=== PATIENT | male | born 1980 | race Caucasian/White ===

== ENCOUNTER 2023-03-24 06:47 | Observation (INO) ==
--- NOTE | 2023-03-10 10:47 | PAT Medication Instructions ---
Medication Instructions Date of Service March 10, 2023 Home Medications gabapentin 300 mg capsule 300 mg PO TID Take morning of surgery With a small sip of water, OTHERWISE NOTHING TO EAT OR DRINK AFTER MIDNIGHT: gabapentin 300 mg capsule 300 mg PO TID Take evening before surgery gabapentin 300 mg capsule 300 mg PO TID Other Notes If you have any questions please call us at [phone] or [phone] or [phone] or [phone]
--- NOTE | 2023-03-15 09:58 | Anesthesiology Consultation ---
Date of Service March 15, 2023 Assessment & Plan (1) Encounter for pre-operative examination: - Infectious disease screening: Per assessment on 03/15/23: No known infectious disease contacts. Patient was Covid positive 02/27/23 (home test)- fatigue > resolved after a few days. No current infectious disease symptoms. Pt can proceed as scheduled without additional preop Covid testing or additional Covid contact precautions per protocol. - Outpatient joint assessment: Pt currently scheduled for inpatient pathway. If surgeon requests review for outpatient joint pathway, patient is an acceptable candidate for outpatient joint program from anesthesia standpoint pending surgeon's office assessment that patient is motivated, has good support and completes [facility] Day Joint Program preop requirements. - Patient acceptable risk for surgery pending surgeon-ordered PCP preop evaluation (SIMEON Alaniz, appt 03/19). Chart Review Chart Review: Patient seen in Pre Admission Testing Teaching & Discussion Pre-Anesthesia Teaching/Discussion Notes: Instructed NPO after midnight before surgery,except medications with 15 cc of water. Medication instructions provided according to the PAT guidelines. History Surgery Operation Date: 03/24/23 08:50 Proposed Procedures p Left Total Hip Arthroplasty - Partha Mckeon MD Height/Weight Height: 6 ft Weight: 138.4 kg Allergies Allergy/AdvReac Type Severity Reaction Status Date / Time No Known Allergies Allergy Verified 03/08/23 08:01 Medications Home Medications Medication Instructions Recorded Confirmed Last Taken gabapentin 300 mg capsule 300 mg PO TID 08/04/21 03/08/23 08/06/21 Past Medical History Medical History Arthritis History of ADHD History of COVID-19 03/2021- mild symptoms 02/27/23 (home test)- fatigue, resolved Inguinal hernia Lumbar radiculopathy Exercise / Class Metabolic Activity II 4-5 Yardwork/Stairs/Walk up hill Past Family History Family History Father Family hx of colon cancer Other No family history of adverse response to anesthesia Past Surgical History Surgical History History of appendectomy History of colonoscopy History of tonsillectomy and adenoidectomy [place] teeth removed Past Anesthesia History No Hx of Anesthesia Complications and No Family Hx of Anesthesia Complications History of PONV No Hx of PONV and No Hx of Motion Sickness Social History Smoking Status: Light tobacco smoker tobacco type: cigarettes and cigars Do You Dip or Chew Tobacco: No Smoking End Date: Quit cigarette 3-4 years ago, occasional cigar Hx Alcohol Use: Yes Alcohol type: beer alcohol intake frequency: holidays/special occasions only Hx Substance Use: No substance use type: does not use Review of Systems Patient denies chest pain, shortness of breath, dyspnea on exertion, fever, chills, cough, wheezing, palpitations. Physical Exam Vital Signs VITALS BP 156/69 P 57 TEMP 98.7 SP02 95%RA RESP 16 PHYSICAL Full cervical extension range of motion. Full TMJ range of motion. TMD 4 finger breaths Mallampati Score 2 Dentition: missing molars, + implant (possible) Lungs: clear throughout to auscultation Cardiac: regular rate and rhythm, no murmurs noted Spine: normal Carotid arteries: negative bruit Extremities: no LE edema Short neck Lab Results Anesthesia Preop Results Results Anesthesia Widget: WBC 7.20 K/ul (4.8-10.8) 03/15/23 Hgb 15.4 g/dl (14.0-18.0) 03/15/23 Hct 43.5 % (42.0-52.0) 03/15/23 Plt 242 K/uL (130-400) 03/15/23 Na 140 mmol/L (136-145) 03/15/23 K 3.9 mmol/L (3.5-5.1) 03/15/23 Cl 107 mmol/L (98-107) 03/15/23 CO2 28 mmol/L (21-32) 03/15/23 BUN 22 mg/dl (6-23) 03/15/23 Creat 0.99 mg/dl (0.6-1.4) 03/15/23 Glucose Level 96 mg/dl (70-99(Fasting)) 03/15/23 PT 10.9 Seconds (9.0-12.0) 03/15/23 PTT 26.7 Seconds (21.0-31.0) 03/15/23 INR 1.0 (0.9-1.1) 03/15/23 Urine Color Dark Yellow 03/15/23 Urine Appearance Clear (Clear) 03/15/23 Urine pH 6.0 (4.5-7.5) 03/15/23 Urine Specific [place] 1.042 (1.000-1.030) H 03/15/23 Urine Protein 1+ (Negative) H 03/15/23 Urine Glucose (UA) Negative (Negative) 03/15/23 Urine Ketones Trace (Negative) H 03/15/23 Urine Blood Negative (Negative) 03/15/23 Urine Nitrite Negative (Negative) 03/15/23 Urine Bilirubin 1+ (Negative) H 03/15/23 Urine Urobilinogen Negative (Negative) 03/15/23 Urine Leukocyte Esterase Negative (Negative) 03/15/23 Urine WBC (Auto) 1-5 /hpf (0-5) 03/15/23 Urine RBC (Auto) 0-4 /hpf (0-4) 03/15/23 Urine Hyaline Casts (Auto) 0 /lpf (0-5) 03/15/23 Urine Epithelial Cells (Auto) 10-20 /lpf (0-5) H 03/15/23 Urine Bacteria (Auto) Negative (Negative) 03/15/23 Blood Type A Positive 03/15/23 Antibody Screen NEGATIVE 03/15/23 Testing Electrocardiogram Date: 03/15/23 SB with sinus arrhythmia at 49bpm. iRBBB. No significant change compared to 11/04/2015. Chest X-Ray Date: 03/15/23 Findings: + NAD
--- NOTE | 2023-03-24 06:31 | History & Physical Bridge Note ---
Date of Service March 24, 2023 History & Physical Bridge Note I have examined the patient, reviewed the History & Physical and in the interval since the performance of the History & Physical I have noted the following changes of clinical significance:consent and site verified. no changes noted
[~2023-03-24 06:47] MED LIST: LR 500ML BOLUS, THEN 15ML/HR IV SCH; LR 60ML/HR IV SCH; TRANEXAMIC ACID 1,000 MG **IV Pre-op IV SCH
[2023-03-24] MEDS ORDERED: BUPIVACAINE 0.5 % 5 MG/1 ML PF 10ML VIAL ONE (07:07)
[2023-03-24] MEDS ORDERED: fentaNYL citrate PF 100 MCG/2 ML VIAL ONE (07:16)
[2023-03-24] MEDS ORDERED: MIDAZOLAM HCL 1 MG/ML 2ML VIAL ONE ×2 (07:16→10:14)
[2023-03-24] MEDS ORDERED: PROPOFOL IV EMULSION 10 MG/ML 20 ML VIAL IV ONE ×6 (07:16→10:52)
[2023-03-24] MEDS ORDERED: ORTHO JOINT ANESTHETIC ONE (08:40)
[2023-03-24] MEDS ORDERED: PROMETHAZINE HCL 12.5 MG in SODIUM CHLORIDE 0.9% 50 ML IV PRN (08:55)
[2023-03-24] MEDS ORDERED: FLUMAZENIL 0.1 MG/1 ML 10 ML VIAL IV PRN (08:55)
[2023-03-24] MEDS ORDERED: ePHEDrine sulfate 50 MG/ML AMP IV PRN (08:55)
[2023-03-24] MEDS ORDERED: HYDROmorphone INJ 1 MG/ML SYRINGE IV PRN (08:55)
[2023-03-24] MEDS ORDERED: fentaNYL citrate PF 100 MCG/2 ML VIAL IV PRN (08:55)
[2023-03-24] MEDS ORDERED: NALOXONE HCL 0.4 MG/1 ML VIAL/CARP IV PRN ×2 (08:55→13:20)
[2023-03-24] MEDS ORDERED: ONDANSETRON INJ 2 MG/ML 2 ML VIAL IV PRN ×2 (08:55→13:20)
[2023-03-24] MEDS ORDERED: ATROPINE SULFATE 0.1 MG/ML 10ML SYR IV PRN (08:55)
[2023-03-24] MEDS ORDERED: GLYCOPYRROLATE 0.2 MG/ML VIAL ONE (09:16)
[2023-03-24] MEDS ORDERED: ePHEDrine sulfate 50 MG/5 ML SYR ONE (09:16)
[2023-03-24] MEDS ORDERED: TRANEXAMIC ACID / 0.7% NACL 1000MG/100ML BAG IV ONE (09:24)
[2023-03-24] MEDS ORDERED: ONDANSETRON INJ 2 MG/ML 2 ML VIAL ONE (09:47)
[2023-03-24] MEDS ORDERED: PHENYLEPHRINE HCL 10 MG/ML VIAL ONE (09:47)
[2023-03-24] MEDS ORDERED: VANCOMYCIN HCL 1000MG/20ML VIAL ONE (10:08)
[2023-03-24] MEDS ORDERED: TRANEXAMIC ACID 100 MG/ML 10 ML VIAL IV ONE (10:39)
[2023-03-24] MEDS: ROPIVACAINE 0.5% HCL/PF 150 MG, BUPIVACAINE 0.75% MPF 20 ML, EPINEPHrine 0.15 MG, Ketor... INFIL SCH ×2 (10:40→10:52)
--- NOTE | 2023-03-24 11:03 | Post Operative Brief Note ---
Immediate Post Op Note v1 Date of Surgery March 24, 2023 Pre & Post Diagnosis Operation Date: 03/24/23 08:50 Pre-Op Diagnosis: Left Hip Degenerative Joint Disease Post-Op Diagnosis: Left Hip Degenerative Joint Disease I identified the patient and participated in the time-out.: Yes Procedure Operation Date: 03/24/23 08:50 Actual Procedures p Left Total Hip Arthroplasty--Uncemented(Left) - Partha Mckeon MD Surgeon Partha Mckeon MD Supercharge Repair [facility] Estimated Blood Loss 200 Findings Consistent with Post-Op Diagnosis Severe osteoarthritis marked osteophyte formation Fluids See anesthesia report Complications None
--- NOTE | 2023-03-24 11:07 | Operative Report ---
Post Operative Report Procedure Date: March 24, 2023 Pre & Post Diagnosis: [Severe osteoarthritis left hip preop diagnosis Postop diagnosis severe osteoarthritis left hip] Time Out: I identified the patient and participated in the time-out. Procedure: [Noncemented left total replacement] Surgeon: Aydin Community Support Specialist: [Chey] Estimated Blood Loss: [200 cc] Findings: Severe disease with marked eburnation and marked osteophyte formation around the femur and the acetabulum [] Specimens: [Bone pathology] Description of Procedure: [After the patient was anesthetized with spinal he was appropriately positioned after marking his malleolar I and his patella on the opposite knee and placed in the right lateral decubitus position the left leg was draped free. He is a large man. Everything was padded appropriately. Once it was prepped and draped use routine fashion antibiotics from his been given the consent verified site verified the surgery was started. A appropriate sized incision was made over his posterior aspect of his left hip. Full-thickness flaps raised IT band and gluteus jairo fascia split longitudinally retractors placed care taken to protect the sciatic nerve which was palpated. There was exuberant subcutaneous tissue throughout and deep fat throughout. This was appropriately retracted and short external rotators identified some bleeding areas preemptively coagulated. Short external rotators were then released the capsule exposed. The capsule was then teed and preserved and the hip dislocated there was incredible deformity to the femoral head and the femoral neck. Femoral head was then resected using a template. The anterior capsule was then slightly incised with the thermal device of the retractor could be placed and then appropriate acetabular exposure obtained with 3 retractors care taken to protect the sciatic nerve. There was used osteophytes off the posterior inferior aspect of the acetabulum. Serial reaming was carried out to a size 55 and a 56 cup impacted into position and was an acetabular shell sector cup was then secured with a 6.5x30 screw with excellent purchase. Trial liner was then seated. It was a neutral liner. The femur was then flexed internally rotated the proximal femur. With a safe deposit box rental clerk canal finder lateralizing rest and serial broaching up to a size 7. Trial reduction was then carried out leg lengths were noted to be relatively closed with 1.5 head but 5 had made it better. The hip was then was remarkably stable in all planes. Trial implants were then removed from the femur the area irrigated with Betadine the trial liner removed the area irrigated with Pulsavac Betadine whole limb interceded. The permanent liner seated. Permanent head and stem seated. The hip was reduced and was stable in all planes the leg lengths were excellent. It was a size 7 standard Tri-Lock at 36+5 ceramic head. Once this was irrigated with Betadine and Pulsavac for final time deep vancomycin powder 1 g was mixed throughout the entire wound from the joint all the way out to the surface was split in the segments. The capsule was closed with #2 Vicryl and the short external rotators with #2 Vicryl deep fat with #2 Vicryl subcutaneous deep fat with #2 Vicryl to superficial deep fat with 2-0 Vicryl and the skin with kimberly. 0 Prolene was used for retention sutures. Appropriate dressing applied the patient transferred recovery in satisfactory addition he tolerated the procedure well. Patient will have x-rays checked in recovery room. If they look good we will get him on his feet CALEB. Blood loss was 200 cc or less crystalloid per anesthesia pathology pending on bone summary of implants size 56 shell set acetabular shell sector cup DePuy 6.5x30 screw 36x56 neutral liner 7 standard Tri-Lock and 36+5 ceramic head. DVT prophylaxis per protocol..] Attestation: I attest to the content of the Intraoperative Record and any orders documented therein. Any exceptions are noted below.
--- NOTE | 2023-03-24 11:09 | Discharge Summary ---
Date of Service March 25, 2023 Admission HPI Per Admitting Provider Severe pain osteoarthritis left hip Principal Diagnosis Severe osteoarthritis left hip Discharge Data Allergies Allergy/AdvReac Type Severity Reaction Status Date / Time No Known Allergies Allergy Verified 03/24/23 07:12 Vaccinations None Consultations None Procedures Performed Operation Date: 03/24/23 08:50 Actual Procedures p Left Total Hip Arthroplasty--Uncemented(Left) - Partha Mckeon MD Ordered Studies None Hospital Course (1) History of left hip replacement: Continue care pathway Plan Continue care pathway Total Time Total Time Spent Total Time Spent (In Minutes): 5 minutes Discharge Plan Discharge Items Patient Disposition: Home - Home Health Services Reason For Visit: Left Hip Degenerative Joint Disease Discharge Diagnosis: Left hip s/p total hip replacement Condition on Discharge: Good Activity: Per Instructions section Lifting: Wait until after follow-up appointment Bathing: Keep incision dry Sexual Activity: Wait until after follow-up appointment Exercise/Sports: Wait until after follow-up appointment Driving/Machine Use: No driving until cleared by Dr. Mckeon Weightbearing: Full weightbearing Non-emergency contact: Surgeon Call non-emergency contact if: you have any medication questions, your pain is not controlled, your temperature is above 101, your wound has increased redness, your wound has increased drainage and your wound pain has increased Follow-up/Referrals: Adriana Adhikari [Primary Care Provider] - Diet: Regular Addtl Attending Provider Instructions: New Medicine: * You will likely be taking one or more of these medicines: 1. Percocet - Take, as directed, when you need it, every four to six hours to control your pain. 2. Iron Sulfate - Take 1x each day for the month after surgery to help you replace the blood lost during surgery. 3. Coumadin - Thins your blood to lessen the chance of forming a blood clot. The dose of this is different for each person and is based on your blood tests that are done twice a week. * The most common side effects of pain medicine and iron are nausea and constipation. If nausea or constipation is too much of a problem or if you have any questions about your new medicines or doses, call [facility] at . We will try to help you manage these issues. "VERY IMPORTANT TO READ AND REVIEW" Blood Clots and Blood Thinning Medicine: * You are given Coumadin during the immediate post-operative period to lessen the risk of blood clots forming in your legs and/or lungs. Coumadin is usually given for six weeks after surgery. * The prescription is for 2 mg tablets. At discharge, you should understand your dose and take it all at the same time every day, preferably after dinner. * You need to get your blood checked 1 - 2 times per week for six weeks, or as directed. * If your dose needs to change, we will call you. Do not take your medication on the day of the blood test until we call you. * If you don't hear from us after your blood draws, keep taking the same dose. Pain: * The immediate post-operative period after hip replacement surgery is often quite painful. * You are given a prescription for pain medicine. You should take it, as directed, when you need it, especially before physical therapy and before going to bed. Pain that interferes with sleep is very common and can last several months. * You will likely need pain medicine for the first two to four weeks. It will not stop all of the pain. The pain will lessen and as you feel better, you may change to milder pain medicine such as Tylenol. * The most common side effects of pain medicine are nausea and constipation, so don't take more than you need. Physical Therapy: * Follow the "Hip Precautions Instructions." * In some cases, the social services director at the hospital will arrange to have a therapist come to your house for the first couple of weeks to help you learn these skills. * You need to practice on your own or with the help of a family member as needed. * When you learn these skills, most of the therapy can be done on your own. Home Exercise: * You were shown a series of exercises in the hospital. Do these exercises three to four times each day including the exercises you were shown in physical therapy. Walking: * Get up and walk several times each day. For the first four weeks, try not to stand or walk for more than one hour at a time. If you do stand or walk for more than one hour, you will not hurt anything, but your leg will likely swell. * As you feel comfortable, you may change from the walker or crutches to a cane and then to independent walking. SELF CARE INSTRUCTIONS AFTER TOTAL HIP REPLACEMENT Until the incision and soft tissues around your hip have healed, there is a possibility that the hip prosthesis could dislocate. A. Observe the following precautions to prevent dislocation: 1. Don't bend your hip greater than 90 degrees. 2. Avoid crossing your legs or ankles while standing or lying. 3. Sit with your feet placed 6 inches apart. 4. When sitting, keep your knees below your hips. Sit on a firm surface, avoid deep, soft chairs and couches. Use an elevated toilet seat in the bathroom. 5. Don't bend over at the waist. Use a long handled shoehorn and a sock aid to help you put on your shoes and socks. A punch finisher can help you milk pickup truck driver objects that are too high or too low to reach. 6. Keep car riding to a minimum for at least one month after surgery. B. Your balance may be shaky for a while. Use crutches or a walker until directed by your doctor. C. Use hand rails when walking on stairs. D. Wear low heeled shoes with non-slip soles. E. Be sure that your floors are free of things that could trip you - throw rugs, electrical cords, small objects. Avoid wet and waxed floors, especially with crutches and canes. F. Try to walk several times a day with rest periods between. G. Continue with all the exercises taught to you in the hospital. Again, make walking a part of your daily routine. VERY IMPORTANT TO READ AND REVIEW A. Take Coumadin, or Lovenox (blood thinning medications) as directed by your doctor. If you are on Coumadin, have a pro-time (blood test) drawn according to your doctor's instructions. This will tell the doctor how well the Coumadin is thinning your blood. B. There are a few signs you need to watch for after you are home. If you notice any of the followin. Increased severe hip pain. Some pain is expected especially when you exercise. 2. Increased swelling in your leg or knee; pain or swelling of the calf muscle in either lower leg. 3. Any fluid drainage from the incision. 4. Shortness of breath or chest pain. TEDs/Elastic Stockings: * The white elastic stockings help limit swelling and prevent blood clots from forming in your legs. The more you wear them, the more they work. * Wear them for six weeks. Prevention of Infection: * Take antibiotics one hour before any dental cleaning, dental work, urological procedure, gastrointestinal procedure or any invasive surgery in order to prevent your new joint from getting infected. * You may get the antibiotics from the doctor performing the procedure or we will call in a prescription to the pharmacy of your choice. Call the office for a prescription at least 2 days prior to your paolo ointment. Things to Watch For: * Drainage from the incision site that occurs more than one week after your surgery. * Severely increased leg pain or swelling. * Increased redness at the incision site. * Fever above 101 degrees Fahrenheit. * Unusual chest pain or shortness of breath. * Unusual pain or burning with urination. Pending Studies at Discharge: Yes (Bone pathology) Stand-Alone Forms: My [facility], Smoking Cessation Medications and DC Order Prescriptions: No Action gabapentin 300 mg Capsule 300 mg PO TID Admission Data Admit Date/Time: 03/24/23 11:18 Attending Provider: Partha Mckeon Admit Provider: Partha Mckeon Primary Care Provider: Adriana Adhikari
--- NOTE | 2023-03-24 11:10 | Orthopedic Progress Note ---
Date of Service March 24, 2023 Assessment & Plan (1) History of left hip replacement: Plan: Continue care pathway Plan Continue care pathway Orthopedic Progress Note Tolerated left total replacement well denies chest pain shortness of breath fever chills nausea vomiting or headache. Vital signs are stable he is afebrile. Neurovascular check limited by spinal. X-ray pending. Continue care pathway. Discharge tomorrow if he does well. DVT prophylaxis per protocol.
--- NOTE | 2023-03-24 11:11 | Operative Report ---
Post Operative Report Pre & Post Diagnosis Operation Date: 03/24/23 08:50 Pre-Op Diagnosis: Left Hip Degenerative Joint Disease Post-Op Diagnosis: Left Hip Degenerative Joint Disease I identified the patient and participated in the time-out.: Yes Procedure Operation Date: 03/24/23 08:50 Actual Procedures p Left Total Hip Arthroplasty--Uncemented(Left) - Partha Mckeon MD Surgeon CITLALI Mckeon MD Sustainable Agriculture Faculty Chey MELÉNDEZ Estimated Blood Loss 200 Findings Consistent with Post-Op Diagnosis see operative report Specimens see operative report Drains none Complications none Disposition Accompanied Patient To Recovery: Yes Indications This 42 year old male presented the office with complaints of persisting left hip pain. He had tried conservative care measures including injection therapy, without improvement. He elected to proceed with surgical intervention after being educated about potential risks and outcomes. Preoperative imaging was obtained. Description of Procedure The patient was administered a spinal anesthetic and then taken to the operating room where he was given sedation. He was prepped and draped in the usual sterile fashion. Please see Dr. Mckeon's operative report for specifics of the procedure. I was present for the entire case from initial patient positioning through final wound closure. Assistance was provided in tissue retraction, hemostasis, trial implant placement, final implant placement, and final wound closure. The patient was taken to the recovery room in satisfactory condition. I attest to the content of the Intraoperative Record and any orders documented therein. Any exceptions are noted below.
--- NOTE | 2023-03-24 12:12 | Anesthesiology Progress Note ---
Date of Service March 24, 2023 Anesthesia Post Procedure Vital Signs Vital Signs: Temp Pulse Resp BP Pulse Ox O2 Del Method 03/24/23 12:00 36.4 C L 67 18 114/66 97 Room Air 03/24/23 11:45 58 L 20 113/61 93 Room Air 03/24/23 11:35 76 20 128/88 97 Room Air 03/24/23 11:25 64 16 107/64 94 Room Air 03/24/23 11:15 67 19 105/63 95 Room Air 03/24/23 11:06 36.3 C L 91 H 21 117/68 94 Room Air 03/24/23 07:13 36.6 C 62 22 133/76 95 Room Air Pain Intensity Left Hip: Pain Intensity: 0 Right Shoulder: Pain Intensity: 7 Transfer of Care Handoff Completed per policy Notes Mental Status: alert / awake / arousable Patient Amnestic to Procedure: Yes Nausea / Vomiting: adequately controlled Pain: adequately controlled Airway Patency, RR, SpO2: stable & adequate BP & HR: stable & adequate Hydration State: stable & adequate Neuraxial Anesthesia: was administered and sensory block is resolving Anesthetic Complications: no major complications apparent
[2023-03-24] MEDS ORDERED: bisacodyL 10 MG SUPP PR PRN (13:20)
[2023-03-24] MEDS ORDERED: ALUMINUM/MAGNESIUM SUSP 30 ML UDC PO PRN (13:20)
[2023-03-24] MEDS ORDERED: TAMSULOSIN HCL 0.4 MG CAP PO PRN (13:20)
[2023-03-24] MEDS ORDERED: diphenhydrAMINE 50 MG/ML VIAL IV PRN (13:20)
[2023-03-24] MEDS ORDERED: METOCLOPRAMIDE HCL INJ 5 MG/ML 2 ML VIAL IV PRN (13:20)
[2023-03-24] MEDS ORDERED: MAGNESIUM HYDROXIDE SUSP 30 ML UDC PO PRN (13:20)
[2023-03-24] MEDS ORDERED: SODIUM CHLORIDE 0.9% 1,000 ML IV SCH (13:30)
--- NOTE | 2023-03-24 13:31 | XRay Report ---
XR pelvis 1-2V routine CLINICAL HISTORY: Status post left hip arthroplasty. COMPARISON: Pelvis and left hip radiographs September 28, 2022. FINDINGS: Alignment of the total left hip arthroplasty is anatomic. There is no periprosthetic fract ure or unexpected radiopaque foreign body. There is an acetabular screw and skin kimberly. Right hip o steoarthritis is incidentally noted. IMPRESSION: Expected findings following total left hip arthroplasty. ACT 112: Negative or not required by law. Electronically signed by: Demond Gómez M.D. 03/24/2023 1:30 PM
[2023-03-24] MEDS ORDERED: ORTHO WARFARIN NOMOGRAM SCH (14:00)
[2023-03-24] MEDS: ACETAMINOPHEN 500 MG TAB PO SCH ×2 (14:07→19:47)
[2023-03-24] MEDS: oxyCODONE HCL IR 5 MG TAB (IMMEDIATE RELEASE) PO PRN ×2 (14:07→23:22)
[2023-03-24] MEDS: KETOROLAC 30 MG/ML VIAL IV SCH ×2 (14:07→19:43)
--- NOTE | 2023-03-24 14:50 | Orthopedic Progress Note ---
Date of Service March 24, 2023 Assessment & Plan (1) History of left hip replacement: Plan: Continue care pathway Plan Continue care pathway Admission and Anticipated Discharge Date Admission Date: March 24, 2023 Orthopedic Progress Note Afternoon rounds check at this point in time he is doing well. Denies chest pain shortness of breath fever chills nausea vomiting or headache. Vital signs are stable he is afebrile. Neurovascular check femoral sciatic nerve is intact. Wound dressing clean dry and intact hip located. Supple motion. Postop x-rays look excellent. Assessment doing well we will saline lock his IV and get up on his feet soon after. Tolerated left total replacement well denies chest pain shortness of breath fever chills nausea vomiting or headache. Vital signs are stable he is afebrile. Neurovascular check limited by spinal. X-ray pending. Continue care pathway. Discharge tomorrow if he does well. DVT prophylaxis per protocol.
[2023-03-24] MEDS: GABAPENTIN 300 MG CAP PO SCH ×2 (15:05→19:45)
[2023-03-24] MEDS ORDERED: WARFARIN SOD 5 MG TAB PO SCH (16:00)
[2023-03-24] MEDS: HYDROmorphone INJ 0.5 MG/0.5 ML SYR IV PRN ×2 (16:27→19:08)
[2023-03-24] MEDS: ceFAZolin 2000MG 2,000 MG/15 ML SYR IV SCH (16:28)
[2023-03-24] MEDS: FERROUS GLUCONATE 324 MG TAB PO SCH (16:28)
[2023-03-24] MEDS: ASCORBIC ACID 500 MG TAB PO SCH (16:28)
[2023-03-24] MEDS: DOCUSATE SODIUM 100 MG CAP PO SCH (19:44)
[2023-03-24] MEDS ORDERED: SENNA 8.6 MG TAB PO SCH (21:00)
[2023-03-25] MEDS: KETOROLAC 30 MG/ML VIAL IV SCH ×2 (01:22→08:17)
[2023-03-25] MEDS: ceFAZolin 2000MG 2,000 MG/15 ML SYR IV SCH (01:22)
[2023-03-25] MEDS: ACETAMINOPHEN 500 MG TAB PO SCH (04:48)
[2023-03-25 06:22] LABS: Basophils # (auto) 0.04 K/uL (0.00-0.20); Basophils % (auto) 0.4 %; Eosinophils # (auto) 0.05 K/uL (0.00-0.50); Eosinophils % (auto) 0.5 %; Hematocrit (blood only) 39.2 % (42.0-52.0); Hemoglobin 14.1 g/dl (14.0-18.0); Immature Granulocytes # (auto) 0.07 K/uL (0.01-0.20); Immature Granulocytes % (auto) 0.7 %; Lymphocytes # (auto) 1.51 K/uL (1.20-3.40); Lymphocytes % (auto) 14.2 %; Mean Corpuscular Hemoglobin 30.3 pg (25.0-34.0); Mean Corpuscular Volume 84.1 fL (80.0-100.0); Mean Platelet Volume 8.5 fL (9.4-12.4); Monocytes # (auto) 1.18 K/uL (0.11-0.59); Monocytes % (auto) 11.1 %; Neutrophils # (auto) 7.77 K/uL (1.40-6.50); Neutrophils % (auto) 73.1 %; Platelet Count 175 K/uL (130-400); RDW Coefficient of Variation 12.2 % (11.5-14.5); Red Blood Count 4.66 M/uL (4.70-6.10); White Blood Count 10.62 K/ul (4.8-10.8)
[2023-03-25 06:54] LABS: BUN Creatinine Ratio 13.6 (10-20); Calcium 8.5 mg/dl (8.6-10.3); Est GFR (African American) 102.6 ml/min; Est GFR (Non-African American) 88.6 ml/min
[2023-03-25 07:06] LABS: Prothrombin Time 10.7 Seconds (9.0-12.0)
--- NOTE | 2023-03-25 07:32 | Orthopedic Progress Note ---
Date of Service March 25, 2023 Assessment & Plan (1) History of left hip replacement: Plan: Continue care pathway Plan Continue care pathway Admission and Anticipated Discharge Date Admission Date: March 24, 2023 Orthopedic Progress Note Postop day #1 status post left total replacement. Patient is doing well denies any chest pain shortness of breath fever chills nausea vomiting headache. Vital signs are stable he is afebrile. Neurovascular check from the sciatic nerve is normal. Hip is located. Wound dressing clean dry and intact. AM labs are excellent. Creatinine stable at 39. Assessment doing well status post a left total replacement PT OT dressing change with Radha follow-up in a week. Discharge today. Begin anticoagulation today. Afternoon rounds check at this point in time he is doing well. Denies chest pain shortness of breath fever chills nausea vomiting or headache. Vital signs are stable he is afebrile. Neurovascular check femoral sciatic nerve is intact. Wound dressing clean dry and intact hip located. Supple motion. Postop x-rays look excellent. Assessment doing well we will saline lock his IV and get up on his feet soon after. Tolerated left total replacement well denies chest pain shortness of breath fever chills nausea vomiting or headache. Vital signs are stable he is afebrile. Neurovascular check limited by spinal. X-ray pending. Continue care pathway. Discharge tomorrow if he does well. DVT prophylaxis per protocol.
--- NOTE | 2023-03-25 07:34 | Operative Report ---
Post Operative Report Procedure Date: March 25, 2023 Pre & Post Diagnosis: [] Osteoarthritis severe left hip this is an addendum operative report Time Out: I identified the patient and participated in the time-out. Procedure: [] Noncemented left total replacement Surgeon: [] Mike Guest Services Representative: [[place] no resident or fellow available] Estimated Blood Loss: [See previous report] Findings: [See previous report] Specimens: [See previous report] D see previous report once again this is an addendum [] Attestation: I attest to the content of the Intraoperative Record and any orders documented therein. Any exceptions are noted below.
[2023-03-25] MEDS ORDERED: dexAMETHasone 10 MG in SYRINGE 0 ML IV SCH (08:00)
[2023-03-25] MEDS: FERROUS GLUCONATE 324 MG TAB PO SCH (08:18)
[2023-03-25] MEDS: ASCORBIC ACID 500 MG TAB PO SCH (08:18)
[2023-03-25] MEDS: oxyCODONE HCL IR 5 MG TAB (IMMEDIATE RELEASE) PO PRN (08:22)
--- NOTE | 2023-03-25 08:51 | Orthopedic Progress Note ---
Date of Service March 25, 2023 Assessment & Plan (1) History of left hip replacement: Plan: The patient was educated regarding today's findings. His surgical dressing was removed. A Prevena wound VAC was placed. He will see me in a week on 04 01 at 3 PM for removal. Total precautions were reviewed. Prescriptions for Percocet 5/325 mg, warfarin 2 mg, doxycycline 100 mg, and prednisone 10 mg, were sent to his pharmacy. Continue using his walker for standing and ambulation. Follow-up in the office in 2 weeks as scheduled for staple removal. Home health has already been established. Call with any other concerns. Written discharge instructions were provided. Admission and Anticipated Discharge Date Admission Date: March 24, 2023 Subjective This 42-year-old male is seen today in his room. He is 1 day status post left total hip arthroplasty. He states he is doing well. He has already been out of bed. He has finished breakfast. He is waiting for therapy. He denies any chest pain, shortness of breath, abdominal pain, nausea, vomiting, or significant hip pain at this time. He feels ready to be discharged home. No other complaints at this time. Review of Systems Review of Systems: unchanged from yesterday Physical Exam Physical Exam: General: Well-developed, well-nourished, middle-aged male, in no acute distress. Sitting in bed. Alert and oriented. Skin: Warm dry with good turgor. He has a postsurgical dressing in place on the left hip. Upon removal, there is a small amount of bloody drainage on the i nnermost dressings. There is no active bleeding from his wound. Peter and retention sutures are in place. Wound edges are well approximated. Expected postoperative edema. No ecchymosis. Musculoskeletal: The patient has intact motor function of his hip, knee, and ankles. He is able to get himself out of bed without difficulty. He is able to stand with his walker and take several steps without difficulty. Neurologic: Gross sensation is intact across the left leg by soft touch. Peripheral pulses are 2+. Results & Data Vital Signs (Past 12 Hours) Vital Signs Temp Pulse Resp BP Pulse Ox O2 Del Method 03/25/23 08:31 36.5 C 62 17 131/73 97 Room Air 03/25/23 04:10 36.7 C 68 16 124/71 97 Room Air 03/24/23 23:18 36.8 C 59 L 16 118/71 96 Room Air Laboratory Results CBC obtained today shows a white count of 10.6. H&H of 14.1 and 39.2. Platelets 175,000. INR is 1.0. Sodium 138, potassium 4.0. Chloride 106. Anion gap of 6. BUN 14 and creatinine 1.03. Glucose was 101 this morning.
[2023-03-25] MEDS ORDERED: MULTIVITAMIN TAB PO SCH (09:00)
[2023-03-25] MEDS: GABAPENTIN 300 MG CAP PO SCH (10:28)
[2023-03-25] MEDS: DOCUSATE SODIUM 100 MG CAP PO SCH (10:40)
== END 2023-03-25 11:15 | disposition home health service (06) ==
LOC: 3E 06:47 → ASU 06:47